=== PATIENT | female | born 1945 | race Caucasian/White ===

== ENCOUNTER 2018-09-04 11:32 | Inpatient (IN) ==
--- NOTE | 2018-09-04 12:10 | PROVIDER DOCUMENTATION ---
HPI-General Adult - General Chief Complaint: Extremity Pain Stated Complaint: ARM WEAKNESS Time Seen by Provider: 09/04/18 11:56 Source: patient Allergies/Adverse Reactions: Patient Allergies Allergy/AdvReac Type Severity Reaction Status Date / Time No Known Allergies Allergy Verified 04/13/18 15:55 Home Medications: Home Medication List Medication Instructions Recorded Confirmed Last Taken Type ATORVAstatin [Lipitor] 40 mg PO QHS 08/14/13 09/04/18 08/13/13 21:00 History Bupropion [Wellbutrin] 50 mg PO DAILY 08/14/13 09/04/18 08/14/13 06:00 History Quinapril HCl 40 mg PO DAILY 08/14/13 09/04/18 08/14/13 06:00 History Hydrochlorothiazide 25 mg PO DAILY 04/13/18 09/04/18 Unknown History Tolterodine [Detrol] 4 mg PO DIRECTED 04/13/18 09/04/18 Unknown History - History of Present Illness -Gen Adult Nature of Presenting Problems: Patient is a 73 yowf presenting to the ED today for right arm tingling and limp. she reports she was outside at the park last night around 20:30 and it went limp. she reports some mild right sided neck pain. she reports "pins and needles" feeling in her right hand/fingers. she denies any facial droop, N/V/D, chest pain, SOB, dizziness. she has decreased motor strength to the right arm. she denies numbness but does report tingling. she reports a family history of strokes. patient in no acute distress. she reports symptoms are slightly better today, but her arm is still weak. Location of Pain/Injury: reports: upper extremity (right arm) Pain Radiation: reports: no radiation Quality of Pain: reports: other (tingling) Severity: reports: mild Onset/Duration: reports: last night Timing: reports: still present Context/Activities at Onset: reports: light activity Modifying Factors: improves with: nothing Associated Symptoms: reports: back/neck pain (right side neck pain). denies: anxiety, arm pain, chest pain, constipation, cough, diaphoresis, diarrhea, dizziness, EENT symptoms, fatigue, fever/chills, genitourinary problems, hea daches, heartburn, joint pain, loss of appetite, malaise, muscle aches, sinus congestion/drainage, nausea, rash, seizure, shortness of breath, sensory/motor loss, pain with inspiration, swelling/mass in abdomen, syncope, vomiting, weakness, trouble walking Similar Symptoms Previously?: No Recently seen or treated by another doctor?: No Review of Systems - Adult - REVIEW OF SYSTEMS - ADULT Constitutional: reports: no symptoms reported. denies: chills, fever Eyes: reports: no symptoms reported. denies: decreased vision, blurred vision, double vision Ears, Nose, Mouth & Throat: reports: no symptoms reported Cardiovascular: reports: no symptoms reported. denies: chest pain, syncope Respiratory: reports: no symptoms reported. denies: cough, shortness of breath Gastrointestinal: reports: no symptoms reported. denies: abdominal pain, diarrhea, nausea, vomiting Genitourinary: reports: no symptoms reported Musculoskeletal: reports: no symptoms reported Integumentary: reports: no symptoms reported Neurological: reports: paresthesia (right hand/fingers). denies: dizziness/vertigo, headache/migraines, numbness, seizure, slurred speech Psychiatric: reports: no symptoms reported Endocrine: reports: no symptoms reported Hematologic/Lymphatic: reports: no symptoms reported Allergic/Immunologic: reports: no symptoms reported All Other Systems: Reviewed and Negative Past History - Adult - PAST MEDICAL HISTORY-ADULT Review of Records: reports: Old Records Reviewed, Nursing Assessment Review, Medications Reviewed Major Childhood Illnesses: reports: denies history Cardiovascular: reports: HTN, hyperlipidemia Respiratory: reports: sleep apnea Gastrointestinal: reports: GERD Obstetrical/Gynecological: reports: denies history Genitourinary: reports: kidney stones Musculoskeletal: reports: denies history Neurological: reports: denies history Endocrine/Immune: reports: denies history Other Conditions: reports: denies history - PRIOR SURGERIES/PROCEDURES Surgical/Procedure History: reports: appendectomy, cholecystectomy, hysterectomy , tonsillectomy, orthopedic (extremity), other (pituitary tumor removed) - IMMUNIZATION STATUS Childhood Immunizations: See Nurse Assessment Flu Vaccine: See Nurse Assessment - FAMILY HISTORY Family History: reviewed, not pertinent - SOCIAL HISTORY Smoking: denies Physical Exam-General - PHYSICAL EXAM-ADULT Initial Vital Signs Reviewed: Yes - CONSTITUTIONAL General Appearance: appears well, alert, no apparent distress - EYES Eyes: PERRL/EOMI, pink conjunctivae - HEAD, EARS, NOSE, MOUTH & THROAT HENMT: normocephalic/atraumatic, moist mucous membranes - NECK Neck: non-tender, full range of motion, supple - RESPIRATORY Respiratory: chest non-tender, lungs clear, normal breath sounds, no pleuratic chest pain, no respiratory distress, no accessory muscle use - CARDIOVASCULAR Cardiovascular: normal peripheral pulses, regular rate, rhythm, no edema, no gallop, no JVD, no murmur - GASTROINTESTINAL (ABDOMEN) Abdominal Exam: normal bowel sounds, non tender, soft - LYMPHATIC Lymphatic: no adenopathy - MUSCULOSKELETAL Back Exam: normal inspection, no CVA tenderness, no vertebral tenderness Extremity: normal range of motion, non-tender, normal gait Peripheral Pulses: radial (R): 2+ - SKIN Integumentary: normal color, normal turgor, warm/dry - NEUROLOGIC Neurologic: grossly normal, motor weakness (right arm). negative: abnormal gait, aphasia - PSYCHIATRIC Psych/Mental Status: normal mood/affect, normal thought content, normal thought process, oriented x 3 Progress - PLAN OF CARE/RESULTS Progress/Plan/Lab Results: Vital Signs - 8 hr 09/04/18 11:36 Temperature 99.0 F Pulse Rate 79 Respiratory Rate 18 Blood Pressure 109/67 O2 Sat by Pulse Oximetry 97 Orders Category Date Time Status CT HEAD W/O CONTRAST [CT] Stat Exams 09/04/18 12:03 Ordered CBC WITH ELECTRONIC DIFF [HEME] Stat Lab 09/04/18 12:04 Uncollected COMPREHENSIVE METABOLIC PANEL [CHEM] Stat Lab 09/04/18 12:04 Uncollected D-DIMER [COAG] Stat Lab 09/04/18 12:04 Ordered Discussed plan of care with patient, she understands and agrees with plan of care and denies any questions at this time. Discussed plan of care with Dr. Carlson, he agrees with plan of care. Result Diagrams: 09/04/18 12:25 09/04/18 12:25 - EKG 1 Time of EKG reading by physician:: 13:35 EKG Read and Signed by:: Vijay Carlson EKG Interpretation (*Must complete 3 of following elements*): Normal Rate: 74 Rhythm: sinus Eagle: normal QRS: normal IA Interval: normal ST Wave: normal - CT/MRI 1 CT Study: Head Impression: See EMR Report ( CT HEAD W/O CONTRAST - 09/04/2018 INDICATION: rule out stroke COMPARISON: None FINDINGS: There is advanced diffuse cerebral atrophy. There is advanced heterogeneous cerebral white matter hypodensity compatible with chronic microvascular disease. No intracranial mass or hemorrhage. There is severe calcified vascular disease of the carotid siphons and basilar artery. The skull is intact. The sinuses, mastoids, and middle ears are clear. IMPRESSION: Advanced chronic changes. This exam was performed using automated exposure control, adjustment of mA or kV according to patient size, and/or use of iterative reconstruction technique Electronically signed by Servando Helm 09/04/2018 12:51 PM 09/04/18 1251 Interpreting Physician: Servando Helm MD Dictated Date/Time: 09/04/18 1249 cc: Kelley Parkinson; None,PCP) - CONSULTS/PCP/HOSPITALIST Notification #1 *Consult/PCP/Hospitalist*: Dr. Dunham Time Discussed: 13:10 Consult Disposition: Admit Departure - Departure Date of Disposition Decision: 09/04/18 Time of Disposition Decision: 13:10 DIAGNOSIS: Stroke-like symptom Disposition: ADMITTED INPATIENT 09 Certified Medical Emergency: Emergent Condition: Stable - Critical Care Note This patient required my direct & personal management of CC.: No Attestation - Physician/ YESENIA Attestation Patient care was provided by Advanced Practice Provider:: Yes Advanced Practice Provider:: Kelley Parkinson Advanced Practice Provider documentation review:: The Mid-level provider documentation, treatment plan and medical decision making was reviewed by the physician who agrees with all treatment and medical decision making by the [facility]. The physician spent face to face time with patient:: No Advanced Practice Provider documentation review:: Supervising physician onsite and consulted in the evaluation and care of this patient. The physician did not have a face to face encounter with the patient.
[2018-09-04 12:50] LABS: BASO# 0.05 X1000 (0.0-0.2); BASO% 0.7 % (0.0-0.8); EOS# 0.19 X1000 (0.0-0.7); EOS% 2.8 % (0.0-10.0); HEMATOCRIT 35.6 % (37.0-47.0); HEMOGLOBIN 11.3 g/dL (12.0-16.0); IMM GRAN# 0.01 X1000 (0.0-0.04); IMM GRAN% 0.1 % (0.0-0.5); LYMPH# 1.86 X1000 (1.2-3.4); LYMPH% 27.4 % (20.5-51.1); MCH 26.2 PG (27-31); MCHC 31.7 g/dL (33-37); MCV 82.6 FL (81-99); MONO% 7.4 % (1.7-9.3); MPV 10.8 FL (7.4-10.4); NEUT# 4.18 X1000 (1.4-6.5); NEUT% 61.6 % (42.2-75.2); PLT 287 X1000 (130-400); RBC 4.31 XMIL (4.2-5.4); RDW 15.4 % (11.5-14.5); WBC 6.79 X1000 (4.8-10.8)
--- NOTE | 2018-09-04 12:53 | Diag Imaging Result Doc PS360 ---
CT HEAD W/O CONTRAST - 09/04/2018 INDICATION: rule out stroke COMPARISON: None FINDINGS: There is advanced diffuse cerebral atrophy. There is advanced heterogeneous cerebral white matter hypodensity compatible with chronic microvascular disease. No intracranial mass or hemorrhage. There is severe calcified vascular disease of the carotid siphons and basilar artery. The skull is intact. The sinuses, mastoids, and middle ears are clear. IMPRESSION: Advanced chronic changes. This exam was performed using automated exposure control, adjustment of mA or kV according to patient size, and/or use of iterative reconstruction technique Electronically signed by Servando Helm 09/04/2018 12:51 PM
[2018-09-04 12:55] LABS: INR 0.94; PROTIME 13.1 Seconds (11.0-16.0)
[2018-09-04 12:56] LABS: PTT 28.5 Seconds (22.3-41.8)
[2018-09-04 13:06] LABS: AGAP 10; ALBUMIN 4.2 g/dL (3.5-5.0); ALKALINE PHOSPHATASE 77 U/L (32-104); BUN 12 mg/dL (8-22); CALCIUM 9.6 mg/dL (8.8-10.2); CHLORIDE 106 mmol/L (98-107); COSMO 287; CREATININE 0.9 mg/dL (0.5-0.9); ESTIMATED GFR > 60; GLUCOSE 113 mg/dL (70-104); GOT 20 U/L (10-30); GPT 15 U/L (10-36); POTASSIUM 3.8 mmol/L (3.5-5.1); SODIUM 144 mmol/L (136-145); TCO2 28 mmol/L (25-35); TOTAL PROTEIN 6.8 g/dL (6.3-8.3)
--- NOTE | 2018-09-04 14:44 | EKG Report ---
Test Performed on : 09/04/2018 1:30:45 PM Test Reason : ER Blood Pressure : / mmHG Vent. Rate : 074 BPM Atrial Rate : 074 BPM P-R Int : 170 ms QRS Dur : 070 ms QT Int : 404 ms P-R-T Axes : 082 016 032 degrees QTc Int : 448 ms Normal sinus rhythm. Normal ECG When compared with ECG of 13-APR-2018 16:07, No significant change was found Unconfirmed Result
[2018-09-04] MEDS ORDERED: DETROL PO SCH (17:45)
[2018-09-04] MEDS ORDERED: LIPITOR PO SCH (21:00)
[2018-09-04 22:26] LABS: BILIRUBIN URINE NEGATIVE (NEGATIVE); BLOOD URINE NEGATIVE (NEGATIVE); CLARITY CLEAR (CLEAR); COLOR YELLOW; GLUCOSE URINE NEGATIVE (NEGATIVE); KETONE URINE TRACE mg/dL (NEGATIVE); LEUKOCYTES URINE 1+ (NEGATIVE); NITRITE URINE POSITIVE (NEGATIVE); PROTEIN URINE NEGATIVE (NEGATIVE); UROBILINOGEN URINE NORMAL
[2018-09-04 22:40] LABS: URINE BACTERIA 4+ /HFP; URINE EPITHELIAL CELLS <10 /HPF (<10); URINE RBC <10 /HPF (<10); URINE SOURCE CLEAN CATCH
--- NOTE | 2018-09-05 02:03 | HISTORY AND PHYSICAL ---
CHIEF COMPLAINT: Right arm weakness. HISTORY OF PRESENT ILLNESS: Patient is a very pleasant 73-year-old female who notes that she is having some right arm tingling, weakness, started a couple of days ago after she had gone to a concert in the park. Her son notes that she had carried her lawn chair on her right arm from her car to where she sat and back, and then she woke up with symptoms later that night. Denies any true focal weakness. Denies any facial drooping, blurred vision, change in vision. Denies any headaches, blurred vision, weight loss, weight gain. Denies any dysuria, frequency, urgency. Denies hesitancy, polyuria or polydipsia. ALLERGIES: No known drug allergies. MEDICATIONS: 1. Atorvastatin 40. 2. Wellbutrin 50. 3. Quinapril 40. 4. Hydrochlorothiazide 25. PAST MEDICAL HISTORY: Hypertension, depression, high cholesterol, chronic reflux, history of kidney stones. SURGICAL HISTORY: Patient has had an appendectomy, cholecystectomy, hysterectomy, tonsillectomy, and pituitary tumor removed. REVIEW OF SYSTEMS: Patient denies any headaches, blurred vision, change in vision. Denies any focalized weakness. She did have numbness and tingling in her right upper extremity that appears to be improving. Denies any weakness or tingling elsewhere. Denies any dysuria, frequency, urgency. Denies polyuria or polydipsia. Denies constipation, melena, hematochezia. PHYSICAL EXAMINATION: VITAL SIGNS: Reviewed. Temperature 98 degrees, pulse 79, respiratory 18, BP 109/67, sat 97% on room air. GENERAL: Patient is awake, alert. She is in no current respiratory distress. HEENT: Normocephalic. NECK: Supple. CARDIOVASCULAR: Regular rate. No murmurs. CHEST: Clear, nonlabored. ABDOMEN: Soft, nondistended, nontender. EXTREMITIES: Moves all extremities. No focal changes. Unable to elicit any weakness, right versus left upper extremity. ASSESSMENT: Acute neurologic event. Actually, I do not believe this was a stroke. I believe this was more of a burner or stinger from carrying her lawn chair. She had some pins and needles in her arm and had some weakness for a few hours, that has improved. We will continue her in the hospital. Continue oxygen. PLAN: Will watch patient in the hospital. Check echo, carotid. Rule out TIA, although I believe this was not a TIA. We will continue to follow. Discussed and attempted to answer all her questions. cc: Arsenio Dunham MD
[2018-09-05 07:30] VITALS: BP 130/73
--- NOTE | 2018-09-05 07:52 | Extremity Venous Study ---
EXAM: Carotid Ultrasound HISTORY: TIA TECHNIQUE: Carotid Doppler ultrasound COMPARISON: None. FINDINGS: Right: Mild atherosclerosis in the common carotid artery. No stenosis over 30%. There is plaque within the bulb. The peak systolic velocity in the internal carotid artery 63 cm/s. The ICA/CCA ratio is 1.0. Stenosis less than 40% in the internal carotid artery. Antegrade flow in the vertebral artery. Left: Mild atherosclerosis in the common carotid artery. No stenosis over 30%. There is plaque within the bulb. The peak systolic velocity in the internal carotid artery 70 cm/s. The ICA/CCA ratio is 1.16. Stenosis less than 40% in the internal carotid artery. IMPRESSION: Mild stenosis within each common carotid artery of less than 30%. Stenosis in the proximal internal carotid arteries of less than 40%. Electronically signed by Khurram Lopez 09/05/2018 7:49 AM
[2018-09-05 08:09] LABS: HEMATOCRIT 34.6 % (37.0-47.0); HEMOGLOBIN 10.8 g/dL (12.0-16.0); MCHC 31.2 g/dL (33-37); MCV 83.2 FL (81-99); MPV 11.2 FL (7.4-10.4); RBC 4.16 XMIL (4.2-5.4); RDW 15.3 % (11.5-14.5); WBC 7.18 X1000 (4.8-10.8)
[2018-09-05 08:23] LABS: AGAP 11; ALBUMIN 3.6 g/dL (3.5-5.0); ALKALINE PHOSPHATASE 69 U/L (32-104); BUN 13 mg/dL (8-22); CHLORIDE 109 mmol/L (98-107); COSMO 286; CREATININE 0.8 mg/dL (0.5-0.9); ESTIMATED GFR > 60; GLUCOSE 110 mg/dL (70-104); GOT 17 U/L (10-30); GPT 14 U/L (10-36); MAGNESIUM 1.9 mg/dL (1.5-2.7); POTASSIUM 3.9 mmol/L (3.5-5.1); SODIUM 143 mmol/L (136-145); TCO2 23 mmol/L (25-35)
[2018-09-05] MEDS ORDERED: ACCUPRIL PO SCH (09:00)
[2018-09-05] MEDS ORDERED: ASPIRIN PO SCH (09:00)
--- NOTE | 2018-09-06 01:41 | ECHO REPORT ---
ORDER DATE: 09/05/2018 MEASUREMENTS: Septal thickness 0.9. Left ventricular internal diameter diastole 4.7, posterior wall thickness 0.8. Aortic root 3.1, left atrium 3.7. SUMMARY: 1. Adequate quality study. 2. Aortic valve is trileaflet and opens normally on 2-dimensional images. Peak gradient across the aortic valve is less than 10 mmHg. There is mild mitral annular calcification. There is mild mitral regurgitation. Tricuspid and pulmonic valves are without evidence of structural abnormality with mild tricuspid regurgitation and trace pulmonic insufficiency. Estimated systolic PA pressure by Doppler is 30 mmHg. Aortic root is normal in size. 3. Normal left ventricular dimensions demonstrated. Estimated left ventricular ejection fraction appears to be at least 65%. No regional wall motion abnormalities are evident. Doppler suggests grade 1 left ventricular diastolic dysfunction. Left atrium is mildly enlarged on 2- dimensional images. Right atrium and right ventricle are normal in size with grossly preserved right ventricular systolic function. 4. No pericardial effusion. 5. Appearance of inferior vena cava suggests normal central venous pressure. cc: MD Arsenio Kinsey MD
--- NOTE | 2018-09-06 07:26 | DISCHARGE SUMMARY ---
ADMISSION DATE: 09/04/2018 DISCHARGE DATE: 09/05/2018 DISCHARGE DIAGNOSES: 1. Right arm numbness, more than likely secondary to strain. 2. Hypertension. 3. Depression. 4. High cholesterol. CONSULTATIONS: None. PROCEDURES: None. BRIEF HOSPITAL COURSE: The patient is a 73-year-old female who presented to the hospital secondary to right arm symptoms. After a discussion with her and her son, these symptoms started after she had carried a chair over her right arm, and it appears she has more of a brachial plexus strain than a true stroke. DISPOSITION: Thankfully, her symptoms have resolved. She is awake, alert, and therefore she will be discharged home. No changes were made in her diet or activity. She is already on cholesterol medications as well as blood pressure medication. She will continue these as prescribed. TIME SPENT: 35 minutes were spent in total care. cc: Arsenio Dunham MD
== END 2018-09-05 12:38 | disposition home or self-care (01) | DRG 74 ==
LOC: P.ED 11:32 → P.MEDSURG 13:26
PROVIDERS: ATTEND Family Medicine